=== PATIENT | male | born 1960 | race Caucasian/White ===

== ENCOUNTER → 2018-06-13 | Outpatient (CLI) | payer BC, OTHER ==
[2014-06-13 15:21] VITALS: BP 146/96
[~2018-06-13] MED LIST: FENO145T32 PO; OXYC1TAB15 PO
--- NOTE | 2018-06-13 12:47 | CARD ---
MR#: [id number] Date of Study: 06/13/2018 Ordering Physician: DORY ROSS, Referring Physician: DORY ROSS, Tech: Ami Padillacarina [facility] APPROVED REPORT INDICATION Chest Pain RISK FACTORS Hypertension Family History PROCEDURE The patient underwent an Exercise Stress Test using the Guillermo Protocol. Blood pressure, heart rate, a nd EKG were monitored. An Echocardiogram was performed by tissue technician in four stages in quad fashion. At peak stress four se lected images were obtained and placed side by side with resting images for comparison. STRESS ECHO FINDINGS The resting Echocardiogram showed normal left ventricular systolic contractility with an estimated Ej ection Fraction of about 60 %. The Stress Echocardiogram showed normal augmentation of myocardial wall segments using a 16 segment m su. The Stress Echocardiogram left ventricular systolic contractility has an estimated Ejection Fraction of about 80%. Test Type: Exercise Test Indications: Chest discomfort Cardiac History and Allergies: Hypertension Resting Heart Rate: 89 bpm Resting Blood Pressure: 152/94mmHg Pretest Chest Pain: No chest pain POST EXERCISE Reason for Termination: Fatigue Target HR: 139 130% of Maximum Predicted HR: 181 bpm Exercise duration: 7:34 min:sec, 3 Stage Exercise capacity: 10METs Max Blood Pressure: 187/99mmHg Chest Pain: No. INTERPRETATION Stress EKG Conclusion: Baseline EKG showed sinus rhythm. No ischemic changes at peak stress. No arr hythmias. <Conclusion> Treadmill exercise stress echocardiogram did not show any evidence of ischemia or infarct. Normal left ventricle systolic function with ejection fraction estimated at 60%. Patient had good activity tolerance. Low risk for cardiac events. Signed by : Dereck Haley, Electronically Approved : 06/13/2018 12:45:45
== END | disposition home or self-care (01) ==
LOC: ECHO 09:48
PROVIDERS: ATTEND Internal Medicine Cardiovascular Disease
DX: R07.89 Other chest pain (principal); I10 Essential (primary) hypertension; Z82.49 Family history of ischemic heart disease and other diseases of the circulatory system
CPT/HCPCS: 93307; 93350

== ENCOUNTER → 2018-09-26 | Outpatient (CLI) | payer BC, OTHER ==
[2014-06-13 15:21] VITALS: BP 146/96
--- NOTE | 2018-09-26 13:49 | RAD ---
Left neck ultrasound, 09/26/2018: HISTORY: Lump The area of clinical concern along the left lower neck was carefully scanned. There is a smooth oval-shaped 4.8 x 3.4 x 1.8 cm subcutaneous mass at this level. It demonstrates an echo pattern similar to that of the subcutaneous fat. The sonographic features are nonspecific, however, a lipoma is most likely. Clinical surveillance is suggested. If clinical concern persists, CT scanning may be useful for further evaluation. Electronically signed by: Zeferino Stern MD (09/26/2018 1:46 PM) [facility]
== END | disposition home or self-care (01) ==
LOC: US 12:42
PROVIDERS: ATTEND Physician Assistant Medical
DX: R22.1 Localized swelling, mass and lump, neck (principal)
CPT/HCPCS: 76536

== ENCOUNTER → 2021-04-22 | Outpatient (CLI) | payer BC, OTHER ==
[2014-06-13 15:21] VITALS: BP 146/96
--- NOTE | 2021-04-22 09:45 | RAD ---
EXAM: Left knee, 3 views. HISTORY: Pain. COMPARISON: None. FINDINGS: 3 views of the left knee are obtained. There is no fracture, dislocation or subluxation. Th ere is no joint effusion. IMPRESSION: No acute osseous finding. Electronically signed by: Kori Augustin MD (04/22/2021 9:42 AM) [id number]
--- NOTE | 2021-04-22 09:50 | RAD ---
EXAM: Lumbar spine, 5 views. HISTORY: Pain. COMPARISON: None. FINDINGS: 5 views of the lumbar spine are obtained. There is dextroscoliosis centered at L3. There is slight rightward lateral translation of L3 on L2. There is slight retrolisthesis of L3 on L4 and L4 and L5. There is multilevel endplate remodeling. There is disc space narrowing predominantly at L2-L3 . There is facet arthropathy predominantly at L5-S1. There are incidental cholecystectomy clips. IMPRESSION: 1. Multilevel degenerative change involving the lumbar spine, described above. 2. No acute osseous finding. Electronically signed by: Kori Augustin MD (04/22/2021 9:48 AM) [id number]
== END ==
LOC: RAD 08:57
PROVIDERS: ATTEND Physician Assistant Medical
DX: M47.816 Spondylosis without myelopathy or radiculopathy, lumbar region (principal); M41.86 Other forms of scoliosis, lumbar region; M43.16 Spondylolisthesis, lumbar region; M48.062 Spinal stenosis, lumbar region with neurogenic claudication; M48.8X7 Other specified spondylopathies, lumbosacral region; M25.562 Pain in left knee
CPT/HCPCS: 72110; 73562